=== PATIENT | female | born 1990 | race Two or more races ===

== ENCOUNTER 2021-06-17 06:41 | Inpatient (IN) | payer OTHER ==
[2021-06-17] MEDS ORDERED: Sodium Chloride 0.9% 10 ML Syringe FLUSH PRN (07:29)
[2021-06-17] MEDS ORDERED: Calcium Carbonate 500 MG Tab.Chew PO PRN (07:29)
[2021-06-17] MEDS ORDERED: Ondansetron 4 MG/2 ML SDV IVPUSH PRN (07:29)
[2021-06-17] MEDS ORDERED: Nalbuphine 10 MG/1 ML Vial IVPUSH PRN (07:29)
[2021-06-17] MEDS ORDERED: Oxytocin/Lactated Ringers 10 UNIT/1,000 ML BAG IV SCH ×3 (07:30→14:57)
[2021-06-17] MEDS ORDERED: Lactated Ringers 1,000 ML IV SCH (07:30)
--- NOTE | 2021-06-17 10:29 | PCM.LDHP ---
L&D History of Present Illness - General Date of Service: 06/17/21 Admit Problem/Dx: Patient Status Order with Admit Dx/Problem 06/17/21 08:20 Patient Status [ADT] Routine Admission Diagnosis/Problem Admission Diagnosis/Problem Source of Information: Patient History Limitations: Reports: No Limitations - History of Present Illness Introduction:: Susannah Mata is a 30-year-old -0-0-1 female at 39 weeks 2 days (TITO 06/22/2021) by an 8-week ultrasound who presents for elective induction of labor. She reports that she has been having irregular contractions over the last several weeks but nothing that is overly concerning to her. She denies any vaginal bleeding or leaking of fluid. She has had some mucus vaginal discharge. She reports good movement. She reports that she has been having increasing amounts of pelvic pressure over the last several weeks. Timing/Duration: Reports: intermittent (Contractions that are mild in nature and not consistent.) Location, : Reports: Lower back, Pelvic Quality: Reports: Pressure Severity: Moderate Worsens with: Reports: None Associated Symptoms: Reports: vaginal discharge (Mucus vaginal discharge). Denies: vaginal bleeding, vaginal fluid Present Illness Comments:: Susannah Mata is a 30-year-old -0-0-1 female at 39 weeks 2 days (TITO 06/22/2021) by an 8-week ultrasound who presents for elective induction of labor. She has had routine care with myself, Dr. Cerna, starting at 8 weeks gestational age. Her has been overall uncomplicated. She had anatomy ultrasound done on 02/15/2021 that showed normal anatomy without any significant abnormalities. Posterior placenta without evidence of previa. was measuring in the 19th percentile at that time. She received Tdap vaccine on 04/07/2021. She declined flu and COVID-19 vaccine during . She did have some gastroesophageal reflux disease during and had used Tums and cimetidine as needed to control her symptoms. Her symptoms did improve prior to the delivery of the infant. 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 G1: 06/23/2011, , male , uncertain gestational age due to home , delivered in the [facility] G2: Current labs Blood type: O+ Antibody screen: Negative Urine culture: Contaminated specimen Rubella status: Immune Hepatitis B surface antigen: Negative RPR: Negative Hepatitis C: Negative HIV: Negative Gonorrhea: Negative Chlamydia: Negative Anatomy ultrasound: Normal anatomy, no evidence of abnormalities, posterior placenta, no previa, 19th percentile on 02/15/2021 One hour glucose tolerance test: 129 Second trimester hematocrit/hemoglobin: 34.1%/10.7 on 04/07/2021 Platelets: 266 on 04/07/2021 GBS status: Negative - Related Data Allergies/Adverse Reactions: Allergies Allergy/AdvReac Type Severity Reaction Status Date / Time No Known Allergies Allergy Verified 06/17/21 06:55 Past Medical History - Past Health History Medical/Surgical History: Denies Medical/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 History 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: : 2 Para: 1 Social & Family History - Family History Family Medical History: No Pertinent Family History - Tobacco Use Tobacco Use Status *Q: Never Tobacco User Second Hand Smoke Exposure: No - Tobacco Core Measures Tobacco Use/Smoking Within Last 30 Days: No Smokeless Tobacco Use in Last 30 Days: No - Caffeine Use Caffeine Use: Reports: None - Recreational Drug Use Recreational Drug Use: No - Living Situation & Occupation Living situation: Reports: , with Spouse H&P Review of Systems - Review of Systems: Review Of Systems: See Below General: Denies: Fever, Chills, Malaise, Fatigue HEENT: Denies: Headaches, Rhinitis, Post Nasal Drip, Sinus Congestion, Sore Throat Pulmonary: Denies: Shortness of Breath, Wheezing, Cough Cardiovascular: Denies: Chest Pain, Palpitations, Dyspnea on Exertion, Orthopnea Gastrointestinal: Denies: Abdominal Pain, Constipation, Diarrhea, Nausea, Vomiting Genitourinary: Denies: Dysuria, Frequency, Burning, Pain, Urgency Musculoskeletal: Reports: Back Pain (and hip pain of ) Skin: Denies: Rash, Lesions Psychiatric: Denies: Depression, Anxiety L&D Exam - Exam Exam: See Below - Vital Signs Vital Signs: Last Vital Signs Temp 36.9 C 06/17/21 09:27 Pulse 125 H 06/17/21 09:27 Resp 16 06/17/21 09:27 BP 118/77 06/17/21 09:27 Pulse Ox 99 06/17/21 09:27 Weight: 78.471 kg - OB Specific Contraction Duration (sec): 60-75 Contraction Frequency (min): 3-7 Contraction Intensity: Mild to Moderate Movement: Active Heart Tones: Present Heart Tones per Min: 140 (+15 x 15 accelerations, no decelerations) Heart Rate (FHR) Variability: Moderate (6-25 bpm) Presentation: Vertex Estimated Weight: 7-7.5 pounds by Emerson - Pino Score Pino Score Cervix Position: Anterior Pino Score Consistency: Soft Pino Score Effacement: >80% (80%) Pino Score Dilation: 3-4 cm (4 cm) Pino Score 's Station: -2 Pino Score Total: 10 - Exam General: Alert, Oriented HEENT: Conjunctiva Clear, EOMI Neck: Supple, Trachea Midline Cardiovascular: Regular Rate, Regular Rhythm GI/Abdominal Exam: Soft, Non-Tender, No Distention, Other (Gravid). No: Guarding, Rigid, Rebound Genitourinary: Normal external exam, Other (Artificial rupture membranes with return of small amount of clear fluid. Mother and tolerated procedure without difficulty) Extremities: Normal Inspection, No Pedal Edema Skin: Warm, Dry, Intact Psychiatric: Alert, Normal Affect, Normal Mood - Patient Data Lab Results Last 24 hrs: Laboratory Results - last 24 hr 06/17/21 06/17/21 06/17/21 Range/Units 07:33 07:45 07:45 WBC 8.16 (3.98-10.04) K/mm3 RBC 4.81 (3.98-5.22) M/mm3 Hgb 10.5 L (11.2-15.7) gm/dl Hct 35.2 (34.1-44.9) % MCV 73.2 L D (79.4-94.8) fl MCH 21.8 L (25.6-32.2) pg MCHC 29.8 L (32.2-35.5) g/dl RDW Std Deviation 45.3 (36.4-46.3) fL Plt Count 277 (182-369) K/mm3 MPV 9.8 (9.4-12.3) fl Neut % (Auto) 65.9 (34.0-71.1) % Lymph % (Auto) 21.9 (19.3-51.7) % [place] % (Auto) 9.4 (4.7-12.5) % Eos % (Auto) 0.9 (0.7-5.8) Baso % (Auto) 0.4 (0.1-1.2) % Neut # (Auto) 5.38 (1.56-6.13) K/mm3 Lymph # (Auto) 1.79 (1.18-3.74) K/mm3 [place] # (Auto) 0.77 H (0.24-0.36) K/mm3 Eos # (Auto) 0.07 (0.04-0.36) K/mm3 Baso # (Auto) 0.03 (0.01-0.08) K/mm3 SARS-CoV-2 RNA (KENN) Negative (NEGATIVE) Blood Type O POSITIVE Gel Antibody Screen Negative Result Diagrams: 06/17/21 07:45 - Problem List (1) 39 weeks gestation of SNOMED Code(s): 44200723 ICD Code: Z3A.39 - 39 WEEKS GESTATION OF Status: Acute Current Visit: Yes (2) ancestry requiring population-specific screening for genetic disorder SNOMED Code(s): 59773319, 567929633, 496285899 ICD Code: Z13.9 - ENCOUNTER FOR SCREENING, UNSPECIFIED Status: Acute Current Visit: Yes Problem List Initiated/Reviewed/Updated: Yes Orders Last 24hrs: Active Orders 24 hr Category Date Time Status Patient Status [ADT] Routine ADT 06/17/21 08:20 Active Activity as Tolerated [RC] PFP Care 06/17/21 07:29 Active Communication Order [RC] ASDIRECTED Care 06/17/21 07:29 Active Non Stress Test [RC] PER UNIT ROUTINE Care 06/17/21 07:29 Active Notify Provider [RC] PFP Care 06/17/21 07:29 Active Notify Provider [RC] PRN Care 06/17/21 07:29 Active Peripheral IV Care [RC] . DIRECTED Care 06/17/21 07:30 Active Pump Management, Intrathecal [RC] ASDIRECTED Care 06/17/21 07:33 Active Urinary Catheter Assessment [RC] ASDIRECTED Care 06/17/21 07:29 Active Vital Signs [RC] PER UNIT ROUTINE Care 06/17/21 07:29 Active Regular Diet [DIET] Diet 06/17/21 Breakfast Active RAPID PLASMA REAGIN,RPR [CHEM] Routine Lab 06/17/21 07:45 Received Calcium Carbonate [Tums] Med 06/17/21 07:29 Active 1,000 mg PO Q2H PRN Lactated Ringers [Ringers, Lactated] 1,000 ml Med 06/17/21 07:30 Active IV ASDIRECTED Nalbuphine [Nubain] Med 06/17/21 07:29 Active 10 mg IVPUSH Q2H PRN Ondansetron [Zofran] Med 06/17/21 07:29 Active 4 mg IVPUSH Q4H PRN Oxytocin/Lactated Ringers [Pitocin in LR 10 Units/1,000 Med 06/17/21 07:30 Active ML] 10 unit in 1,000 ml IV .CONTINUOUS Oxytocin/Lactated Ringers [Pitocin in LR 10 Units/1,000 Med 06/17/21 07:30 Active ML] 10 unit in 1,000 ml IV TITRATE Sodium Chloride 0.9% [Saline Flush] Med 06/17/21 07:29 Active 10 ml FLUSH ASDIRECTED PRN Electronic Heart Tones Ext w TOCO [WOMSER] Oth 06/17/21 07:29 Ordered Routine Electronic Heart Tones Internal [WOMSER] Per Unit Oth 06/17/21 07:29 Ordered Routine Peripheral IV Insertion Adult [OM.PC] Routine Oth 06/17/21 07:29 Ordered Resuscitation Status Routine Resus Stat 06/17/21 07:29 Ordered Medication Orders Calcium Carbonate/Glycine (Calcium Carbonate 500 Mg Tab.Chew) 1,000 mg PO Q2H PRN PRN Reason: Indigestion Oxytocin/Lactated Ringer's (Pitocin In Lr 10 Units/1,000 Ml) 10 unit in 1,000 mls @ 12 mls/hr IV TITRATE EMMA; Protocol Last Titration: 06/17/21 10:00 Dose: 4 munits/min, 24 mls/hr Documented by: [id number] Admin: 06/17/21 09:19 Dose: 2 munits/min, 12 mls/hr Documented by: JUAN CARLOS Oxytocin/Lactated Ringer's (Pitocin In Lr 10 Units/1,000 Ml) 10 unit in 1,000 mls @ 500 mls/hr IV .CONTINUOUS EMMA Lactated Ringer's (Ringers, Lactated) 1,000 mls @ 100 mls/hr IV ASDIRECTED EMMA Last Admin: 06/17/21 09:19 Dose: 100 mls/hr Documented by: [id number] Nalbuphine HCl (Nalbuphine 10 Mg/1 Ml Vial) 10 mg IVPUSH Q2H PRN PRN Reason: Pain Ondansetron HCl (Ondansetron 4 Mg/2 Ml Sdv) 4 mg IVPUSH Q4H PRN PRN Reason: Nausea/Vomiting Sodium Chloride (Sodium Chloride 0.9% 10 Ml Syringe) 10 ml FLUSH ASDIRECTED PRN PRN Reason: Keep Vein Open Assessment/Plan Comment:: Susannah Mata is a 30-year-old -0-0-1 female at 39 weeks 2 days unde rgoing elective induction of labor Patient had artificial rupture membranes with return of small amount of clear fluid. Mother and tolerated procedure without difficulty. Refer to observation for elective induction of labor Start Pitocin for augmentation of labor if patient does not have regular contractions that start within [address] IV and have Lactated Ringer's at 125 ml/hr May have small amounts of regular diet Activity as tolerated May have epidural as desired Plans to breast-feed after delivery Anticipate vaginal delivery unless otherwise indicated Zen Cerna MD 10:37 AM 06/17/2021
[2021-06-17] MEDS ORDERED: fentaNYL 100 MCG/2 ML SDV EPIDUR PRN (10:34)
[2021-06-17] MEDS ORDERED: Bupivacaine/fentaNYL/NS 100 ML Bag EPIDUR PRN (10:34)
[2021-06-17] MEDS ORDERED: diphenhydrAMINE 50 MG/ML SDV IVPUSH PRN (10:34)
[2021-06-17] MEDS ORDERED: ePHEDrine 50 MG/ML SDV IVPUSH PRN (10:34)
--- NOTE | 2021-06-17 11:15 | PCM.PREANE ---
Preanesthetic Assessment - Procedure Proposed Procedure: trevor - Anesthesia/Transfusion/Family Hx Anesthesia History: No Prior Anesthesia Family History of Anesthesia Reaction: No Transfusion History: No Prior Transfusion(s) - Review of Systems General: No Symptoms Pulmonary: No Symptoms Cardiovascular: No Symptoms Gastrointestinal: Abdominal Pain Neurological: No Symptoms Other: Reports: None - Physical Assessment Vital Signs: Last Vital Signs Temp 98.5 F 06/17/21 09:27 Pulse 125 H 06/17/21 09:27 Resp 16 06/17/21 09:27 BP 118/77 06/17/21 09:27 Pulse Ox 99 06/17/21 09:27 Height: 5 ft 2 in Weight: 78.471 kg ASA Class: 2 Mental Status: Alert & Oriented x3 Airway Class: Mallampati = 1 Dentition: Reports: Normal Dentition Thyro-Mental Finger Breadths: 3 Mouth Opening Finger Breadths: 3 ROM/Head Extension: Full Lungs: Clear to Auscultation, Normal Respiratory Effort Cardiovascular: Regular Rate, Regular Rhythm - Lab Values: Laboratory Last Values WBC 8.16 K/mm3 (3.98-10.04) 06/17/21 07:45 RBC 4.81 M/mm3 (3.98-5.22) 06/17/21 07:45 Hgb 10.5 gm/dl (11.2-15.7) L 06/17/21 07:45 Hct 35.2 % (34.1-44.9) 06/17/21 07:45 MCV 73.2 fl (79.4-94.8) L D 06/17/21 07:45 MCH 21.8 pg (25.6-32.2) L 06/17/21 07:45 MCHC 29.8 g/dl (32.2-35.5) L 06/17/21 07:45 RDW Std Deviation 45.3 fL (36.4-46.3) 06/17/21 07:45 Plt Count 277 K/mm3 (182-369) 06/17/21 07:45 MPV 9.8 fl (9.4-12.3) 06/17/21 07:45 Neut % (Auto) 65.9 % (34.0-71.1) 06/17/21 07:45 Lymph % (Auto) 21.9 % (19.3-51.7) 06/17/21 07:45 [place] % (Auto) 9.4 % (4.7-12.5) 06/17/21 07:45 Eos % (Auto) 0.9 (0.7-5.8) 06/17/21 07:45 Baso % (Auto) 0.4 % (0.1-1.2) 06/17/21 07:45 Neut # (Auto) 5.38 K/mm3 (1.56-6.13) 06/17/21 07:45 Lymph # (Auto) 1.79 K/mm3 (1.18-3.74) 06/17/21 07:45 [place] # (Auto) 0.77 K/mm3 (0.24-0.36) H 06/17/21 07:45 Eos # (Auto) 0.07 K/mm3 (0.04-0.36) 06/17/21 07:45 Baso # (Auto) 0.03 K/mm3 (0.01-0.08) 06/17/21 07:45 SARS-CoV-2 RNA (KENN) Negative (NEGATIVE) 06/17/21 07:33 Blood Type O POSITIVE 06/17/21 07:45 Gel Antibody Screen Negative 06/17/21 07:45 - Allergies Allergies/Adverse Reactions: Allergies Allergy/AdvReac Type Severity Reaction Status Date / Time No Known Allergies Allergy Verified 06/17/21 06:55 - Blood Blood Available: No - Acknowledgements Anesthesia Type Planned: Epidural Pt an Appropriate Candidate for the Planned Anesthesia: Yes Alternatives and Risks of Anesthesia Discussed w Pt/Guardian: Yes Pt/Guardian Understands and Agrees with Anesthesia Plan: Yes PreAnesthesia Questionnaire - Past Health History Medical/Surgical History: Denies Medical/Surgical History Cardiovascular History: Reports: None Respiratory History: Reports: None Gastrointestinal History: Reports: GERD (when drinks coffee) 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: 1 Oncologic (Cancer) History: Reports: None - SUBSTANCE USE Tobacco Use Status *Q: Former Tobacco User (7 years ago) Second Hand Smoke Exposure: No Days Per Week of Alcohol Use: 0 Recreational Drug Use History: No - CURRENT (IN HOUSE) MEDS Current Meds: Current Medications Calcium Carbonate/Glycine (Calcium Carbonate 500 Mg Tab.Chew) 1,000 mg PO Q2H PRN PRN Reason: Indigestion Diphenhydramine HCl (Diphenhydramine 50 Mg/Ml Sdv) 25 mg IVPUSH Q6H PRN PRN Reason: pruritis Ephedrine Sulfate (Ephedrine 50 Mg/Ml Sdv) 5 mg IVPUSH ASDIRECTED PRN PRN Reason: Hypotension Fentanyl (Fentanyl 100 Mcg/2 Ml Sdv) 100 mcg EPIDUR Q3H PRN PRN Reason: Pain Last Admin: 06/17/21 10:42 Dose: 100 mcg Documented by: Fentanyl/Bupivacaine HCl (Bupivacaine/Fentanyl/Ns 100 Ml Bag) 100 ml EPIDUR ASDIRECTED PRN PRN Reason: Pain Last Admin: 06/17/21 10:43 Dose: 100 ml Documented by: Oxytocin/Lactated Ringer's (Pitocin In Lr 10 Units/1,000 Ml) 10 unit in 1,000 mls @ 12 mls/hr IV TITRATE EMMA; Protocol Last Titration: 06/17/21 10:00 Dose: 4 munits/min, 24 mls/hr Documented by: Oxytocin/Lactated Ringer's (Pitocin In Lr 10 Units/1,000 Ml) 10 unit in 1,000 mls @ 500 mls/hr IV .CONTINUOUS EMMA Lactated Ringer's (Ringers, Lactated) 1,000 mls @ 100 mls/hr IV ASDIRECTED EMMA Last Admin: 06/17/21 09:19 Dose: 100 mls/hr Documented by: Nalbuphine HCl (Nalbuphine 10 Mg/1 Ml Vial) 10 mg IVPUSH Q2H PRN PRN Reason: Pain Ondansetron HCl (Ondansetron 4 Mg/2 Ml Sdv) 4 mg IVPUSH Q4H PRN PRN Reason: Nausea/Vomiting Sodium Chloride (Sodium Chloride 0.9% 10 Ml Syringe) 10 ml FLUSH ASDIRECTED PRN PRN Reason: Keep Vein Open
--- NOTE | 2021-06-17 14:47 | PCM.DEL ---
L & D Note - General Info Date of Service: 06/17/21 Mother's Due Date: 06/22/21 - Delivery Note Labor: Augmented by Oxytocin, Induced by ARM Cervical Ripening Method: Oxytocin Delivery Outcome: Livebirth Delivery Method: Spontaneous Vaginal Delivery-Single Presentation: Right Occiput Anterior (ANGELO) Nuchal Cord: None Prep: Povidone-Iodine (Betadine Anesthesia Type: Epidural Amniotic Fluid Description: Clear Episiotomy Type: None Laceration: 2nd Degree (midline perineal, repaired with 3-0 Vicryl) Suture type: Vicryl Suture size: 3-0 Placenta: Intact Cord: 3 Vessels Estimated Blood Loss: 400 Resuscitation Needed: No [place]: Bulb Syringe, Stimulated, Warmed, [place] Used Provider: Blane Davis Score 1 min: 8 Score 5 min: 9 Second Stage Interventions: Reports: Pushing Effectively, Pushing, Stirrups/Leg Supports Delivery Comments (Free Text/Narrative):: Stage I: Susannah Mata was admitted for elective induction of labor. On admission her cervix was dilated to 4 cm. She was GBS negative. She had artificial rupture of membranes with return of small amounts of clear fluid. She was started on Pitocin for augmentation of labor with minimal contractions after artificial rupture of membranes. She was given an epidural for anesthesia. She progressed to complete and pushing. Stage II: On 06/17/2021 she had a normal vaginal delivery of a live female infant at 13:46. Apgars of 8 & 9. Weight of 3580 g (7 lbs 14.3 oz). Length of 19.5 inches. There was no nuchal cord. Infant was delivered in ANGELO position. The cord was doubly clamped and cut by myself, Dr. Cerna. was placed on mother's abdomen. Stage III: She had a spontaneous delivery of an intact placenta in [place] presentation. Three vessel cord. She was given pitocin and fundal massage. She had a second-degree midline perineal laceration that was repaired with 3-0 Vicryl. Mom and baby were stable to recovery. EBL of 400 mL. Zen Cerna MD 2:46 PM 06/17/2021 Induction Criteria - Pino Score Pino Score Dilation: 3-4 cm Pino Score Effacement: >80% Pino Score 's Station: -2 Pino Score Consistency: Soft Pino Score Cervix Position: Anterior Pino Score Total: 10 Pino Score Presenting Part: Reports: Cephalic - Induction Gestational Age >/= 39 wks: Yes Estimated Pelvis: Reports: Adequate Reassuring Monitoring Strip: Yes Absence of Tachy Systole: Yes - Augmentation Estimated Pelvis: Reports: Adequate Weight Estimated:: Reports: AGA Reassuring Monitoring Strip: Yes Absence of Tachy Systole: Yes - General Info Date of Service: 06/17/21 - Patient Data Vitals - Most Recent: Last Vital Signs Temp 36.9 C 06/17/21 09:27 Pulse 125 H 06/17/21 09:27 Resp 16 06/17/21 09:27 BP 118/77 06/17/21 09:27 Pulse Ox 99 06/17/21 09:27 Weight - Most Recent: 78.471 kg Lab Results Last 24 Hours: Laboratory Results - last 24 hr 06/17/21 06/17/21 06/17/21 Range/Units 07:33 07:45 07:45 WBC 8.16 (3.98-10.04) K/mm3 RBC 4.81 (3.98-5.22) M/mm3 Hgb 10.5 L (11.2-15.7) gm/dl Hct 35.2 (34.1-44.9) % MCV 73.2 L D (79.4-94.8) fl MCH 21.8 L (25.6-32.2) pg MCHC 29.8 L (32.2-35.5) g/dl RDW Std Deviation 45.3 (36.4-46.3) fL Plt Count 277 (182-369) K/mm3 MPV 9.8 (9.4-12.3) fl Neut % (Auto) 65.9 (34.0-71.1) % Lymph % (Auto) 21.9 (19.3-51.7) % [place] % (Auto) 9.4 (4.7-12.5) % Eos % (Auto) 0.9 (0.7-5.8) Baso % (Auto) 0.4 (0.1-1.2) % Neut # (Auto) 5.38 (1.56-6.13) K/mm3 Lymph # (Auto) 1.79 (1.18-3.74) K/mm3 [place] # (Auto) 0.77 H (0.24-0.36) K/mm3 Eos # (Auto) 0.07 (0.04-0.36) K/mm3 Baso # (Auto) 0.03 (0.01-0.08) K/mm3 SARS-CoV-2 RNA (KENN) Negative (NEGATIVE) Blood Type O POSITIVE Gel Antibody Screen Negative Med Orders - Current: Current Medications Calcium Carbonate/Glycine (Calcium Carbonate 500 Mg Tab.Chew) 1,000 mg PO Q2H PRN PRN Reason: Indigestion Diphenhydramine HCl (Diphenhydramine 50 Mg/Ml Sdv) 25 mg IVPUSH Q6H PRN PRN Reason: pruritis Ephedrine Sulfate (Ephedrine 50 Mg/Ml Sdv) 5 mg IVPUSH ASDIRECTED PRN PRN Reason: Hypotension Fentanyl (Fentanyl 100 Mcg/2 Ml Sdv) 100 mcg EPIDUR Q3H PRN PRN Reason: Pain Last Admin: 06/17/21 10:42 Dose: 100 mcg Documented by: Fentanyl/Bupivacaine HCl (Bupivacaine/Fentanyl/Ns 100 Ml Bag) 100 ml EPIDUR ASDIRECTED PRN PRN Reason: Pain Last Admin: 06/17/21 10:43 Dose: 100 ml Documented by: Oxytocin/Lactated Ringer's (Pitocin In Lr 10 Units/1,000 Ml) 10 unit in 1,000 mls @ 12 mls/hr IV TITRATE EMMA; Protocol Last Titration: 06/17/21 10:00 Dose: 4 munits/min, 24 mls/hr Documented by: Oxytocin/Lactated Ringer's (Pitocin In Lr 10 Units/1,000 Ml) 10 unit in 1,000 mls @ 500 mls/hr IV .CONTINUOUS EMMA Lactated Ringer's (Ringers, Lactated) 1,000 mls @ 100 mls/hr IV ASDIRECTED EMMA Last Admin: 06/17/21 09:19 Dose: 100 mls/hr Documented by: Nalbuphine HCl (Nalbuphine 10 Mg/1 Ml Vial) 10 mg IVPUSH Q2H PRN PRN Reason: Pain Ondansetron HCl (Ondansetron 4 Mg/2 Ml Sdv) 4 mg IVPUSH Q4H PRN PRN Reason: Nausea/Vomiting Sodium Chloride (Sodium Chloride 0.9% 10 Ml Syringe) 10 ml FLUSH ASDIRECTED PRN PRN Reason: Keep Vein Open - Exam Urinary Catheter Total Time: 0Days 0Hours - Problem List & Annotations (1) 39 weeks gestation of SNOMED Code(s): 60940027 Code(s): Z3A.39 - 39 WEEKS GESTATION OF Status: Acute Current Visit: Yes (2) ancestry requiring population-specific screening for genetic disorder SNOMED Code(s): 41564129, 865088233, 990685540 Code(s): Z13.9 - ENCOUNTER FOR SCREENING, UNSPECIFIED Status: Acute Current Visit: Yes (3) Vaginal delivery SNOMED Code(s): 353347728 Code(s): O80 - ENCOUNTER FOR FULL-TERM UNCOMPLICATED DELIVERY Status: Acute Current Visit: Yes (4) Second degree perineal laceration during delivery SNOMED Code(s): 6279154 Code(s): O70.1 - SECOND DEGREE PERINEAL LACERATION DURING DELIVERY Status: Acute Current Visit: Yes - Problem List Review Problem List Initiated/Reviewed/Updated: Yes - My Orders Last 24 Hours: My Active Orders 06/17/21 Breakfast Regular Diet [DIET] 06/17/21 07:29 Activity as Tolerated [RC] PFP Communication Order [RC] ASDIRECTED Non Stress Test [RC] PER UNIT ROUTINE Notify Provider [RC] PFP Notify Provider [RC] PRN Urinary Catheter Assessment [RC] ASDIRECTED Vital Signs [RC] PER UNIT ROUTINE Calcium Carbonate [Tums] 1,000 mg PO Q2H PRN Nalbuphine [Nubain] 10 mg IVPUSH Q2H PRN Ondansetron [Zofran] 4 mg IVPUSH Q4H PRN Sodium Chloride 0.9% [Saline Flush] 10 ml FLUSH ASDIRECTED PRN Electronic Heart Tones Ext w TOCO [WOMSER] Routine Electronic Heart Tones Internal [WOMSER] Per Unit Routine Peripheral IV Insertion Adult [OM.PC] Routine Resuscitation Status Routine 06/17/21 07:30 Peripheral IV Care [RC] . DIRECTED Lactated Ringers [Ringers, Lactated] 1,000 ml IV ASDIRECTED Oxytocin/Lactated Ringers [Pitocin in LR 10 Units/1,000 ML] 10 unit in 1,000 ml IV .CONTINUOUS Oxytocin/Lactated Ringers [Pitocin in LR 10 Units/1,000 ML] 10 unit in 1,000 ml IV TITRATE 06/17/21 07:33 Pump Management, Intrathecal [RC] ASDIRECTED 06/17/21 07:45 RAPID PLASMA REAGIN,RPR [CHEM] Routine 06/17/21 08:20 Patient Status [ADT] Routine 06/17/21 14:26 Patient Status Manage Transfer [TRANSFER] Routine - Plan Plan:: Susannah Mata is a 30-year-old G2 now P2-0-0-2 female status post , PPD #0, complicated by ancestry and acid reflux during Admit to inpatient following normal spontaneous vaginal delivery Continue Pitocin per unit protocol following delivery of placenta and lactated Ringer's until tolerating regular diet Regular diet Vitals per unit routine Ibuprofen and Tylenol for pain control Assist with breast-feeding as needed Continue to monitor lochia Anticipate discharge home on day #1 Zen Cerna MD 2:46 PM 06/17/2021
[2021-06-17] MEDS ORDERED: Witch Hazel Medicated Pads 40/Jar TOP PRN (14:57)
[2021-06-17] MEDS ORDERED: Magnesium Hydroxide 400 MG/5 ML Susp 30 ML Cup PO PRN (14:57)
[2021-06-17] MEDS ORDERED: Benzocaine/Menthol 20%-0.5% Spray 78 GM Cannister TOP PRN (14:57)
[2021-06-17] MEDS ORDERED: Docusate Sodium 100 MG Cap PO PRN (14:57)
[2021-06-17] MEDS ORDERED: Acetaminophen 325 MG Tab PO PRN (14:57)
[2021-06-17] MEDS ORDERED: Hydrocortisone Acetate 25 MG Supp RECTAL PRN (14:57)
[2021-06-17] MEDS ORDERED: Bupivacaine 0.25% 10 ML SDV ONE (16:00)
[2021-06-18] MEDS: Ibuprofen 600 MG Tab PO PRN ×2 (04:41→18:23)
[2021-06-18] MEDS ORDERED: Prenatal Multivitamin with Calcium/Folic Acid/Iron Tab PO SCH (09:00)
--- NOTE | 2021-06-18 09:25 | PCM.SN.2 ---
- Free Text/Narrative Note: Post Progress Note PPD #1 Subjective: Doing well overall. Ambulating without difficulty. Lochia minimal at this time. She reports that she has been having some episodes of increased bleeding and larger blood clots overnight. Voiding without difficulty. Tolerating regular diet without nausea or vomiting. Pain controlled with oral medications. Bottlefeeding with minimal difficulty. Not having any milk production at this time. Objective: Vitals: Vital Signs - 24 hr 06/17/21 06/17/21 06/17/21 09:27 16:00 21:00 Temperature [ 36.9 C 36.7 C Temporal] Pulse, 125 H 90 95 Peripheral [ Pulse Oximetry] Respiratory 16 16 12 Rate Blood Pressure 118/77 126/70 118/69 [Right Arm] O2 Sat by Pulse 99 98 Oximetry 06/18/21 06/18/21 03:00 09:00 Temperature [ 36.6 C 36.7 C Temporal] Pulse, 82 81 Peripheral [ Pulse Oximetry] Respiratory 16 12 Rate Blood Pressure 117/74 104/63 [Right Arm] O2 Sat by Pulse 100 96 Oximetry Physical Exam General: Alert and oriented, no acute distress Lungs: Clear to auscultation bilaterally Heart: Regular rate and rhythm Abdomen: Soft, minimal appropriate tenderness, non-distended, fundus midline, nontender, and at the umbilicus Extremities: Trace edema in bilateral lower extremities to mid shins, no calf tenderness bilaterally ASSESSMENT: 30-year-old female -0-0-2 s/p normal vaginal delivery PPD #1, complicated by ancestry and gastroesophageal reflux disease during PLAN: Doing well Bottlefeeding with minimal difficulty. Assist as needed Lochia minimal. Continue to monitor for appropriate lochia. Continue routine care CBC this morning to check hemoglobin level after having ongoing moderate flow for lochia overnight per nurses report. Anticipate discharge home tomorrow for ongoing monitoring of and for bleeding of mother Zen Cerna MD 9:24 AM 06/18/2021 Time Documentation
--- NOTE | 2021-06-18 11:49 | PCM48HPAN ---
Post Anesthesia Note - EVALUATION WITHIN 48HRS OF ANESTHETIC Vital Signs in Normal Range: Yes Patient Participated in Evaluation: Yes Respiratory Function Stable: Yes Airway Patent: Yes Cardiovascular Function Stable: Yes Hydration Status Stable: Yes Pain Control Satisfactory: Yes Nausea and Vomiting Control Satisfactory: Yes Mental Status Recovered: Yes Vital Signs: Last Vital Signs Temp 98.1 F 06/18/21 09:00 Pulse 81 06/18/21 09:00 Resp 12 06/18/21 09:00 BP 104/63 06/18/21 09:00 Pulse Ox 96 06/18/21 09:00 - COMMENTS/OBSERVATIONS Free Text/Narrative:: Patient resting in bed when visiting with patient. Patient stated that she was "very happy" with her epidural and labor experience. Patient denied back pain in epidural placement site. Discussed signs and symptoms of infection, post-dural puncture headaches, post- depression, and if patient experiences increased back discomfort. Encouraged patient if any of those signs or symptoms develop to contact OB/Anesthesia so the patient can be treated accordingly if needed. Patient verbalized understanding. Patient did not voice any questions or concerns at this time. Phuong Abrams, [employer]
--- NOTE | 2021-06-19 07:31 | PCM.DCSUM1 ---
Discharge Summary - Discharge Data Discharge Date: 06/19/21 Discharge Disposition: Home, Self-Care 01 Condition: Good - Referral to Home Health Primary Care Physician: Zen Cerna MD - Patient Summary/Data Complications: None Consults: None Recommended Follow-up Testing/Procedures: Follow up in 3 weeks for check Hospital Course: 30 y/o a 39 2/7 wks who presented for elective IOL. Progressed well and underwent an uncomplicated . See delivery note. did well and was discharged home on PPD#2 - Patient Instructions Diet: Regular Diet as Tolerated Activity: As Tolerated Activity, Other: Pelvic rest for 6 weeks Driving: May Drive Today Showering/Bathing: May Shower Showering/Bathing, Other: May Bathe Notify Provider of: Fever, Increased Pain, Swelling and Redness, Drainage, Nausea and/or Vomiting - Discharge Plan *PRESCRIPTION DRUG MONITORING PROGRAM REVIEWED*: No *COPY OF PRESCRIPTION DRUG MONITORING REPORT IN PATIENT JOSEF: No Home Medications: Home Meds Docusate Sodium [Colace] 100 mg PO BID PRN cap 06/19/21 [Rx] Ibuprofen [Motrin] 600 mg PO Q6H PRN tablet 06/19/21 [Rx] Vit with Ca/FA/Iron [ Plus Iron] 1 each PO DAILY tablet 06/19/21 [Rx] Patient Handouts: Care After Vaginal Delivery Referrals: Zen Cerna MD [Primary Care Provider] - (Follow up on 07/07/2021 at 1145.) - Discharge Summary/Plan Comment DC Time >30 min.: No Total # of Minutes for Discharge Time: 15 - Patient Data Vitals - Most Recent: Last Vital Signs Temp 36.5 C 06/19/21 02:52 Pulse 72 06/19/21 02:52 Resp 15 06/19/21 02:52 BP 102/63 06/19/21 02:52 Pulse Ox 95 06/19/21 02:52 Weight - Most Recent: 78.471 kg Lab Results - Last 24 hrs: Laboratory Results - last 24 hr 06/18/21 Range/Units 09:40 WBC 10.62 H (3.98-10.04) K/mm3 RBC 4.04 (3.98-5.22) M/mm3 Hgb 8.7 L D (11.2-15.7) gm/dl Hct 29.8 L (34.1-44.9) % MCV 73.8 L (79.4-94.8) fl MCH 21.5 L (25.6-32.2) pg MCHC 29.2 L (32.2-35.5) g/dl RDW Std Deviation 45.0 (36.4-46.3) fL Plt Count 232 (182-369) K/mm3 MPV 9.4 (9.4-12.3) fl Neut % (Auto) 76.7 H (34.0-71.1) % Lymph % (Auto) 15.9 L (19.3-51.7) % [place] % (Auto) 5.7 (4.7-12.5) % Eos % (Auto) 0.8 (0.7-5.8) Baso % (Auto) 0.4 (0.1-1.2) % Neut # (Auto) 8.15 H (1.56-6.13) K/mm3 Lymph # (Auto) 1.69 (1.18-3.74) K/mm3 [place] # (Auto) 0.61 H (0.24-0.36) K/mm3 Eos # (Auto) 0.08 (0.04-0.36) K/mm3 Baso # (Auto) 0.04 (0.01-0.08) K/mm3 Med Orders - Current: Current Medications Acetaminophen (Acetaminophen 325 Mg Tab) 650 mg PO Q6H PRN PRN Reason: mild pain or fever Benzocaine/Menthol (Benzocaine/Menthol 20%-0.5% [place] 78 Gm Cannister) 0 gm TOP ASDIRECTED PRN PRN Reason: Perineal Comfort Measure Last Admin: 06/17/21 16:10 Dose: 1 applic Documented by: Docusate Sodium (Docusate Sodium 100 Mg Cap) 100 mg PO BID PRN PRN Reason: Constipation Hydrocortisone Acetate (Hydrocortisone Acetate 25 Mg Supp) 25 mg RECTAL BID PRN PRN Reason: Hemorrhoid pain Oxytocin/Lactated Ringer's (Pitocin In Lr 10 Units/1,000 Ml) 10 unit in 1,000 mls @ 100 mls/hr IV TITRATE EMMA; Protocol Ibuprofen (Ibuprofen 600 Mg Tab) 600 mg PO Q6H PRN PRN Reason: Mild pain or fever Last Admin: 06/18/21 18:23 Dose: 600 mg Documented by: Magnesium Hydroxide (Magnesium Hydroxide 400 Mg/5 Ml Susp 30 Ml Cup) 30 ml PO BEDTIME PRN PRN Reason: Constipation Prenat Multivit/[place]/Iron/Folic Ac ( Multivitamin With Calcium/Folic Acid/Iron Tab) 1 each PO DAILY EMMA Last Admin: 06/18/21 12:00 Dose: Not Given Documented by: Markos Braga (Markos Braga Medicated Pads 40/Jar) 1 pad TOP ASDIRECTED PRN PRN Reason: Perineal Comfort Measure Last Admin: 06/17/21 16:10 Dose: 1 applic Documented by: Discontinued Medications Bupivacaine HCl (Bupivacaine 0.25% 10 Ml Sdv) 10 ml .ROUTE .[facility] ONE Stop: 06/17/21 16:01 Calcium Carbonate/Glycine (Calcium Carbonate 500 Mg Tab.Chew) 1,000 mg PO Q2H PRN PRN Reason: Indigestion Diphenhydramine HCl (Diphenhydramine 50 Mg/Ml Sdv) 25 mg IVPUSH Q6H PRN PRN Reason: pruritis Ephedrine Sulfate (Ephedrine 50 Mg/Ml Sdv) 5 mg IVPUSH ASDIRECTED PRN PRN Reason: Hypotension Fentanyl (Fentanyl 100 Mcg/2 Ml Sdv) 100 mcg EPIDUR Q3H PRN PRN Reason: Pain Last Admin: 06/17/21 10:42 Dose: 100 mcg Documented by: Fentanyl/Bupivacaine HCl (Bupivacaine/Fentanyl/Ns 100 Ml Bag) 100 ml EPIDUR ASDIRECTED PRN PRN Reason: Pain Last Admin: 06/17/21 10:43 Dose: 100 ml Documented by: Oxytocin/Lactated Ringer's (Pitocin In Lr 10 Units/1,000 Ml) 10 unit in 1,000 mls @ 12 mls/hr IV TITRATE EMMA; Protocol Last Titration: 06/17/21 10:00 Dose: 4 munits/min, 24 mls/hr Documented by: Oxytocin/Lactated Ringer's (Pitocin In Lr 10 Units/1,000 Ml) 10 unit in 1,000 mls @ 500 mls/hr IV .CONTINUOUS EMMA Lactated Ringer's (Ringers, Lactated) 1,000 mls @ 100 mls/hr IV ASDIRECTED EMMA Last Admin: 06/17/21 09:19 Dose: 100 mls/hr Documented by: Nalbuphine HCl (Nalbuphine 10 Mg/1 Ml Vial) 10 mg IVPUSH Q2H PRN PRN Reason: Pain Ondansetron HCl (Ondansetron 4 Mg/2 Ml Sdv) 4 mg IVPUSH Q4H PRN PRN Reason: Nausea/Vomiting Sodium Chloride (Sodium Chloride 0.9% 10 Ml Syringe) 10 ml FLUSH ASDIRECTED PRN PRN Reason: Keep Vein Open
== END 2021-06-19 09:53 | disposition home or self-care (01) | DRG 807 ==
LOC: UNDOADMOB 06:41 → JD.OB 06:41 → OBSVTOIN 13:46
PROVIDERS: ADMIT Obstetrics & Gynecology; ATTEND Obstetrics & Gynecology
PROC: 10E0XZZ Delivery of Products of Conception, External Approach (ICD-10-PCS; principal; 2021-06-17)
PROC: 0KQM0ZZ Repair Perineum Muscle, Open Approach (ICD-10-PCS; 2021-06-17)
PROC: 10907ZC Drainage of Amniotic Fluid, Therapeutic from Products of Conception, Via Natural or Artificial Opening (ICD-10-PCS; 2021-06-17)
PROC: 3E0R3BZ Introduction of Anesthetic Agent into Spinal Canal, Percutaneous Approach (ICD-10-PCS; 2021-06-17)
PROC: 00HU33Z Insertion of Infusion Device into Spinal Canal, Percutaneous Approach (ICD-10-PCS; 2021-06-17)
DX: O99.62 Diseases of the digestive system complicating childbirth (principal); Z37.0 Single live birth; O70.1 Second degree perineal laceration during delivery; K21.9 Gastro-esophageal reflux disease without esophagitis; Z3A.39 39 weeks gestation of pregnancy
CPT/HCPCS: 01967; 36415; 51702; 59025; 59409; 85025; 86592; 86850; 86900; 86901; A9270-GY; J2590; J3010; J3490; J7120; U0002